=== PATIENT | female | born 1995 ===

== ENCOUNTER 2018-07-02 21:14 | Inpatient (IN) | payer OTHER ==
[2018-07-02 21:14] VITALS: BMI 24.3
[2018-07-02] MEDS: Sodium Chloride 0.9% 1,000 ML IV SCH (22:37)
[2018-07-02 23:01] LABS: BASO # 0.1 K/uL (0.0-0.2); BASO % 1.1 % (0.0-2.0); EOS # 0.5 K/uL (0.0-0.7); EOS % 5.5 % (0.0-4.0); HEMOGLOBIN 12.4 g/dL (12.0-16.0); LYMPH # 2.7 K/uL (1.0-4.3); LYMPH % 30.6 % (20.0-40.0); MEAN CELL VOLUME 80.3 fl (81.0-99.0); MEAN CORPUSCULAR HEMOGLOBIN 26.7 pg (27.0-31.0); MEAN CORPUSCULAR HGB CONC 33.2 g/dL (33.0-37.0); MEAN PLATELET VOLUME 7.6 fl (7.2-11.7); MONO # 0.4 K/uL (0.0-0.8); NEUT # 5.1 K/uL (1.8-7.0); NEUT % 57.8 % (50.0-75.0); RBC 4.65 Mil/uL (3.80-5.20); RED CELL DISTRIBUTION WIDTH 15.4 % (11.5-14.5); WHITE BLOOD COUNT 8.8 K/uL (4.8-10.8)
[2018-07-02 23:11] LABS: BLOOD UREA NITROGEN 8 mg/dl (7-17); GFR NON-AFRICAN AMERICAN > 60
--- NOTE | 2018-07-03 00:28 | ED PDOC ---
Syncope/Near Syncope/Dizziness Time Seen by Provider: 07/02/18 22:05 Chief Complaint (Nursing): Dizziness/Lightheaded Chief Complaint (Provider): Dizziness/Lightheaded History Per: Patient History/Exam Limitations: no limitations Onset/Duration Of Symptoms: Hrs Additional Complaint(s): Shelby Flores is a 22 year old female with a past medical history of asthma, presenting with headache and loss of balance onset today. Patient states that she frequently gets headaches but this one was more severe. 4 years ago, she reports that she had a spinal tap because a CT revealed excess fluid around her brain and inflamed veins in the eyes. She states that this pain is not as bad as it was 4 years ago. Patient is able to ambulate without feeling unsteady and denies any nausea or vomiting. She states that she has not been to her PMD in a few years and cannot remember the name. LNMP: 06/10/18 lasted 2 days longer than usual. Past Medical History Reviewed: Historical Data, Nursing Documentation, Vital Signs Vital Signs: Last Vital Signs Temp 98.6 F 07/02/18 21:17 Pulse 103 H 07/02/18 21:17 Resp 16 07/02/18 21:17 BP 152/98 H 07/02/18 21:17 Pulse Ox 96 07/02/18 21:17 - Medical History PMH: Asthma - Surgical History Other surgeries: spinal tap - Family History Family History: States: Unknown Family Hx - Social History Current smoker - smoking cessation education provided: No Alcohol: Social Drugs: Denies - Allergies Allergies/Adverse Reactions: Allergies Allergy/AdvReac Type Severity Reaction Status Date / Time No Known Allergies Allergy Verified 11/19/16 19:04 Review of Systems ROS Statement: Except As Marked, All Systems Reviewed And Found Negative Gastrointestinal: Negative for: Nausea, Vomiting Neurological: Positive for: Headache, Dizziness Physical Exam - Reviewed Nursing Documentation Reviewed: Yes Vital Signs Reviewed: Yes - Physical Exam Appears: Positive for: Non-toxic, No Acute Distress Head Exam: Positive for: ATRAUMATIC, NORMAL INSPECTION, NORMOCEPHALIC Skin: Positive for: Normal Color, Warm, DRY Eye Exam: Positive for: EOMI, Normal appearance, PERRL ENT: Positive for: Normal ENT Inspection Neck: Positive for: Normal, Painless ROM Cardiovascular/Chest: Positive for: Regular Rate, Rhythm. Negative for: Murmur Respiratory: Positive for: Normal Breath Sounds. Negative for: Respiratory Distress Gastrointestinal/Abdominal: Positive for: Normal Exam, Soft. Negative for: Tenderness, Distended, Guarding, Rebound Back: Positive for: Normal Inspection Extremity: Positive for: Normal ROM. Negative for: Calf Tenderness, Deformity, Swelling Neurologic/Psych: Positive for: Alert, network support manager II-XII (intact), Oriented, Other ( Romberg Test positive). Negative for: Motor/Sensory Deficits - Laboratory Results Result Diagrams: 07/02/18 22:42 07/02/18 22:42 - ECG O2 Sat by Pulse Oximetry: 96 (RA) Pulse Ox Interpretation: Normal Medical Decision Making Medical Decision Making: Time: 22:24 Impression: 22 year old female with migraine vs intracranial pathology --Due to patient having previous CT will attempt therapeutic treatment prior to another CT. --IV fluids, Reglan and Toradol --Basic Labs --consider CT brain if symptoms do not resolve 00:[address] Eller. Will start 800 acetazolomide. Opto Consult. Will admit patient under Dr. Alvarez. Scribe Attestation: Documented by Maia Ruiz, acting as a scribe for Rohini Jones MD. Provider Scribe Attestation: All medical record entries made by the Scribe were at my direction and personally dictated by me. I have reviewed the chart and agree that the record accurately reflects my personal performance of the history, physical exam, medical decision making, and the department course for this patient. I have also personally directed, reviewed, and agree with the discharge instructions and disposition. Disposition - Patient ED Disposition Is Patient to be Admitted: Yes - Disposition Disposition Time: 00:00 Condition: STABLE
[2018-07-03] MEDS: Sodium Chloride 0.9% 1,000 ML IV SCH (00:41)
[2018-07-03 05:16] VITALS: RESP 18; O2SAT 100
[2018-07-03 07:53] VITALS: PULSE 75
--- NOTE | 2018-07-03 08:57 | RAD ---
Date of service: 07/03/2018 HISTORY: possible admission COMPARISON: No prior. FINDINGS: LUNGS: The lungs are well inflated and clear. PLEURA: No significant pleural effusion identified, no pneumothorax apparent. CARDIOVASCULAR: Normal. OSSEOUS STRUCTURES: No significant abnormalities. VISUALIZED UPPER ABDOMEN: Normal. OTHER FINDINGS: None. IMPRESSION: No active pulmonary disease.
--- NOTE | 2018-07-03 09:07 | CARD ---
APPROVED REPORT Date of service: 07/03/2018 EKG Measurement Heart [id number] <Conclusion> Normal sinus rhythm Normal ECG
--- NOTE | 2018-07-03 11:38 | CT ---
Date of service: 07/03/2018 PROCEDURE: CT HEAD WITHOUT CONTRAST. HISTORY: Headache unrelieved with pain meds COMPARISON: None available. TECHNIQUE: Axial computed tomography images were obtained through the head/brain without intravenous contrast. Radiation dose: Total exam DLP = 700.44 mGy-cm. This CT exam was performed using one or more of the following dose reduction techniques: Automated exposure control, adjustment of the mA and/or kV according to patient size, and/or use of iterative reconstruction technique. FINDINGS: HEMORRHAGE: No intracranial hemorrhage. BRAIN: Deluca-white matter differentiation is preserved. There is no mass, mass effect or abnormal extra-axial fluid collection. There is no territorial infarction. The midline sagittal structures are normal. VENTRICLES: The ventricles are normal in size, shape and configuration. CALVARIUM: The skull base and calvarium are normal. PARANASAL SINUSES: Predominantly clear. MASTOID AIR CELLS: Predominantly clear. OTHER FINDINGS: None. IMPRESSION: No acute intracranial abnormality.
[2018-07-03 12:14] VITALS: BP 116/81; TEMP 98.3
--- NOTE | 2018-07-03 13:56 | CP.PCM.CON ---
History of Present Illness - History of Present Illness History of Present Illness: Miss dixon is a 22 year old woman, who has a history of headaches, and pseudotumor cerebri, and presents with headache and dizziness yesterday. Headache is 9/10, frontal and retroorbital, throbbing, and associated with visual obscurations. She denies any TVOS or diplopia. Four years ago, she had a similar headache, was found to have papilledema and spinal tap was done. Today , she is very comfortable and has decreased headache after receving diamox 800 mg last night. There is no diplopia nor is there any cranial nerve deficit. ROS: no nausea, no vomiting, no diarrhea, no headache On exam: Normal neurological examination. No papilledema. +2 dtr ul and ll bl. Toes downgoing. NO clonus. Past Patient History - Past Medical History & Family History Past Medical History?: Yes - Past Social History Smoking Status: Never Smoked - CARDIAC Hx Cardiac Disorders: No - PULMONARY Hx Respiratory Disorders: Yes Hx Asthma: Yes - NEUROLOGICAL Hx Neurological Disorder: Yes Other/Comment: hx lumbar puncture for headaches - HEENT Hx HEENT Problems: No - RENAL Hx Chronic Kidney Disease: No - ENDOCRINE/METABOLIC Hx Endocrine Disorders: No - HEMATOLOGICAL/ONCOLOGICAL Hx Blood Disorders: No - INTEGUMENTARY Hx Dermatological Problems: No - MUSCULOSKELETAL/RHEUMATOLOGICAL Hx Musculoskeletal Disorders: No Hx Falls: No - GASTROINTESTINAL Hx Gastrointestinal Disorders: No - GENITOURINARY/GYNECOLOGICAL Hx Genitourinary Disorders: No - PSYCHIATRIC Hx Psychophysiologic Disorder: No Hx Substance Use: No - SURGICAL HISTORY Hx Surgeries: No - ANESTHESIA Hx Anesthesia: No Hx Anesthesia Reactions: No Hx Malignant Hyperthermia: No Has any member of the family had a problem w/ anesthesia?: No Meds Home Medications: Home Medication List Medication Instructions Recorded Confirmed Type Ibuprofen [Motrin Tab] 600 mg PO Q6 PRN #30 tab 07/03/18 Rx acetaZOLAMIDE [Diamox Sequels] 500 mg PO BID #30 cer 07/03/18 Rx Allergies/Adverse Reactions: Allergies Allergy/AdvReac Type Severity Reaction Status Date / Time No Known Allergies Allergy Verified 11/19/16 19:04 - Medications Medications: Current Medications Acetaminophen (Tylenol 325mg Tab) 650 mg PO Q4 PRN PRN Reason: Headache Last Admin: 07/03/18 09:11 Dose: 650 mg Sodium Chloride (Sodium Chloride 0.9%) 1,000 mls @ 1,000 mls/hr IV .Q1H STACIA Stop: 07/03/18 22:26 Last Admin: 07/03/18 00:41 Dose: 1,000 mls/hr Potassium Chloride (K-Dur 20 Meq Er Tab) 20 meq PO DAILY STACIA Results - Vital Signs Recent Vital Signs: Last Vital Signs Temp 98.3 F 07/03/18 12:14 Pulse 75 07/03/18 12:14 Resp 18 07/03/18 12:14 BP 116/81 07/03/18 12:14 Pulse Ox 100 07/03/18 12:14 - Labs Result Diagrams: 07/02/18 22:42 07/02/18 22:42 Labs: Laboratory Results - last 24 hr 07/02/18 07/02/18 07/02/18 22:42 22:42 22:42 WBC 8.8 RBC 4.65 Hgb 12.4 Hct 37.4 MCV 80.3 L MCH 26.7 L MCHC 33.2 RDW 15.4 H Plt Count 298 MPV 7.6 Neut % (Auto) 57.8 Lymph % (Auto) 30.6 [place] % (Auto) 5.0 Eos % (Auto) 5.5 H Baso % (Auto) 1.1 Neut # (Auto) 5.1 Lymph # (Auto) 2.7 [place] # (Auto) 0.4 Eos # (Auto) 0.5 Baso # (Auto) 0.1 Sodium 138 Potassium 3.4 L Chloride 104 Carbon Dioxide 24 Anion Gap 13 BUN 8 Creatinine 0.5 L Est GFR ( Amer) > 60 Est GFR (Non-Af Amer) > 60 Random Glucose 124 H Calcium 9.0 Serum HCG, Qual Negative - Imaging and Cardiology CT scan - head Status: Image reviewed by me, Report reviewed by me (ct head: normal ) Assessment & Plan - Assessment and Plan (Free Text) Assessment: 22 yr old woman who has pseudotumor cerebri, and is now stable. Plan: 1. Continue on diamox 500 mg bid 2. opthalmology consult with dr. arrieta. I have spoken to him and patient will be given an appointemnt. 3. follow up with me jn one month. Thank you Dr. cabrera
--- NOTE | 2018-07-03 17:23 | CP.PCM.HP ---
History of Present Illness - History of Present Illness History of Present Illness: This is a 22 y/o female admitted for worsening of headaches mostly bitemporal and occipital and periorbital. Claims that headaches started a mor andrea 24 hrs ago and has gotten worse despite po meds hence sought ER eval. She was diagnosed to have pseudotumor cerebri and and had a spinal tap and was given meds. Last night she was started on Diammiox last night and today claims that the headaches had somehow subsided a bit. She denies any visual sx and noted to be very comfortable. She now complains of back pain and neck pain. She had an MRI of the brain 4 years ago. Present on Admission - Present on Admission Any Indicators Present on Admission: No History of DVT/PE: No History of Uncontrolled Diabetes: No Urinary Catheter: No Decubitus Ulcer Present: No Review of Systems - EENT Eyes: Blurred Vision Past Patient History - Past Medical History & Family History Past Medical History?: Yes - Past Social History Smoking Status: Never Smoked - CARDIAC Hx Cardiac Disorders: No - PULMONARY Hx Respiratory Disorders: Yes Hx Asthma: Yes - NEUROLOGICAL Hx Neurological Disorder: Yes Other/Comment: hx lumbar puncture for headaches - HEENT Hx HEENT Problems: No - RENAL Hx Chronic Kidney Disease: No - ENDOCRINE/METABOLIC Hx Endocrine Disorders: No - HEMATOLOGICAL/ONCOLOGICAL Hx Blood Disorders: No - INTEGUMENTARY Hx Dermatological Problems: No - MUSCULOSKELETAL/RHEUMATOLOGICAL Hx Musculoskeletal Disorders: No Hx Falls: No - GASTROINTESTINAL Hx Gastrointestinal Disorders: No - GENITOURINARY/GYNECOLOGICAL Hx Genitourinary Disorders: No - PSYCHIATRIC Hx Psychophysiologic Disorder: No Hx Substance Use: No - SURGICAL HISTORY Hx Surgeries: No - ANESTHESIA Hx Anesthesia: No Hx Anesthesia Reactions: No Hx Malignant Hyperthermia: No Has any member of the family had a problem w/ anesthesia?: No Meds Home Medications: Home Medication List Medication Instructions Recorded Confirmed Type Ibuprofen [Motrin Tab] 600 mg PO Q6 PRN #30 tab 07/03/18 Rx acetaZOLAMIDE [Diamox Sequels] 500 mg PO BID #30 cer 07/03/18 Rx Allergies/Adverse Reactions: Allergies Allergy/AdvReac Type Severity Reaction Status Date / Time No Known Allergies Allergy Verified 11/19/16 19:04 Physical Exam - Head Exam Head Exam: NORMAL INSPECTION - Eye Exam Eye Exam: Normal appearance - ENT Exam ENT Exam: Mucous Membranes Moist - Respiratory Exam Respiratory Exam: Clear to Auscultation Bilateral - GI/Abdominal Exam GI & Abdominal Exam: Normal Bowel Sounds - Neurological Exam Neurological exam: Alert, CN II-XII Intact, Oriented x3 - Psychiatric Exam Psychiatric exam: Anxious, Normal Mood Results - Vital Signs Recent Vital Signs: Last Vital Signs Temp 98.3 F 07/03/18 12:14 Pulse 75 07/03/18 12:14 Resp 18 07/03/18 12:14 BP 116/81 07/03/18 12:14 Pulse Ox 100 07/03/18 12:14 - Labs Result Diagrams: 07/02/18 22:42 07/02/18 22:42 Labs: Laboratory Results - last 24 hr 07/02/18 07/02/18 07/02/18 22:42 22:42 22:42 WBC 8.8 RBC 4.65 Hgb 12.4 Hct 37.4 MCV 80.3 L MCH 26.7 L MCHC 33.2 RDW 15.4 H Plt Count 298 MPV 7.6 Neut % (Auto) 57.8 Lymph % (Auto) 30.6 [place] % (Auto) 5.0 Eos % (Auto) 5.5 H Baso % (Auto) 1.1 Neut # (Auto) 5.1 Lymph # (Auto) 2.7 [place] # (Auto) 0.4 Eos # (Auto) 0.5 Baso # (Auto) 0.1 Sodium 138 Potassium 3.4 L Chloride 104 Carbon Dioxide 24 Anion Gap 13 BUN 8 Creatinine 0.5 L Est GFR ( Amer) > 60 Est GFR (Non-Af Amer) > 60 Random Glucose 124 H Calcium 9.0 Triglycerides Cholesterol LDL Cholesterol Direct HDL Cholesterol TSH 3rd Generation Serum HCG, Qual Negative 07/03/18 14:11 WBC RBC Hgb Hct MCV MCH MCHC RDW Plt Count MPV Neut % (Auto) Lymph % (Auto) [place] % (Auto) Eos % (Auto) Baso % (Auto) Neut # (Auto) Lymph # (Auto) [place] # (Auto) Eos # (Auto) Baso # (Auto) Sodium Potassium Chloride Carbon Dioxide Anion Gap BUN Creatinine Est GFR ( Amer) Est GFR (Non-Af Amer) Random Glucose Calcium Triglycerides 108 Cholesterol 217 H LDL Cholesterol Direct 95 HDL Cholesterol 77 H TSH 3rd Generation 2.52 Serum HCG, Qual Assessment & Plan (1) Pseudotumor cerebri syndrome Status: Acute - Assessment and Plan (Free Text) Plan: discussed with Dr lEler. Patient has no visual sx will be followed up as outpatient and will go home on Diamox 500 bid and Ibuprofen tid prn She was discharged in stable condition and advised about follow up.
[2018-07-04] MEDS ORDERED: Potassium Chloride 20 mEq ER Tab PO SCH (09:00)
== END 2018-07-03 15:15 | disposition home or self-care (01) | DRG 103 ==
LOC: H.ER 21:14 → H.ERHOLD 07-03 00:10 → H.TEL 07-03 03:02
PROVIDERS: ADMIT Family Medicine; ATTEND Family Medicine
DX: G93.2 Benign intracranial hypertension (principal); J45.909 Unspecified asthma, uncomplicated

== ENCOUNTER 2019-03-26 00:19 | Emergency (ER) | payer OTHER ==
[2019-03-26 00:20] VITALS: BMI 24.3
[2019-03-26 00:41] VITALS: O2SAT 98
--- NOTE | 2019-03-26 02:23 | ED PDOC ---
Lower Extremity Pain/Injury Time Seen by Provider: 03/26/19 00:43 Chief Complaint (Nursing): Headache History Per: Patient History/Exam Limitations: no limitations Onset/Duration Of Symptoms: Mins Additional Complaint(s): 23 year old with history of pseudotumor cerebri presenting with ankle/foot pain after a mechanical fall. States she twisted it and has pain to the base her R 5th toe and the outside of her ankle. States she is able to walk but with difficulty. Denie shead injury. States she was having a headache earlier from crying but is resolving. - Hip Description Of Injury: Tripped Past Medical History Reviewed: Historical Data, Nursing Documentation, Vital Signs Vital Signs: Last Vital Signs Temp 98.4 F 03/26/19 00:36 Pulse 95 H 03/26/19 00:36 Resp 18 03/26/19 00:36 BP 127/93 H 03/26/19 00:36 Pulse Ox 98 03/26/19 00:36 Primary Care Provider: Ryan Martinez - Medical History PMH: Asthma Denies: Chronic Kidney Disease - Family History Family History: States: Unknown Family Hx - Home Medications Home Medications: Ambulatory Orders Medication Instructions Recorded Ibuprofen [Motrin Tab] 600 mg PO Q6 PRN #30 tab 07/03/18 acetaZOLAMIDE [Diamox Sequels] 500 mg PO BID #30 cer 07/03/18 Ibuprofen [Motrin Tab] 600 mg PO Q6 #30 tab 03/26/19 - Allergies Allergies/Adverse Reactions: Allergies Allergy/AdvReac Type Severity Reaction Status Date / Time No Known Allergies Allergy Verified 11/19/16 19:04 Review of Systems ROS Statement: Except As Marked, All Systems Reviewed And Found Negative Musculoskeletal: Positive for: Foot Pain Physical Exam - Reviewed Nursing Documentation Reviewed: Yes Vital Signs Reviewed: Yes - Physical Exam Appears: Positive for: Well, Non-toxic, No Acute Distress Head Exam: Positive for: ATRAUMATIC, NORMAL INSPECTION, NORMOCEPHALIC Extremity: Positive for: Tenderness (Tenderness to lateral malleolus, no tenderness of medial malleolus; tenderness at base of 5th metatarsal), Swelling. Negative for: Deformity - ECG O2 Sat by Pulse Oximetry: 98 Pulse Ox Interpretation: Normal Medical Decision Making Medical Decision Makin23 year old with ankle and foot pain --Contusion v. strain v. sprain v. fracture --Will get xray, give NSAID and re-eval 330 --Xrays negative --Air cast and crutches with instructions on proper usage given by tech --Will give podiatry consult, RICE instructions --Improved and well appearing upon discharge Disposition - Clinical Impression Clinical Impression: Ankle sprain - Patient ED Disposition Is Patient to be Admitted: No Counseled Patient/Family Regarding: Studies Performed, Diagnosis, Need For Followup, Rx Given - Disposition Referrals: Podiatry Clinic [Outside] Disposition: Routine/Home Disposition Time: 03:35 Condition: GOOD Prescriptions: Ibuprofen [Motrin Tab] 600 mg PO Q6 #30 tab Instructions: Ankle Sprain, How to Use Crutches Forms: [employer] ([employer]), [facility] ED School/Work Excuse
[2019-03-26 03:47] VITALS: BP 122/90; PULSE 85; RESP 20; TEMP 97.3
--- NOTE | 2019-03-26 11:07 | RAD ---
Date of service: 03/26/2019 PROCEDURE: Right Foot Radiographs. HISTORY: slip and fall COMPARISON: March 26, 2019. Right ankle radiographs reported separately. TECHNIQUE: 3 views obtained. FINDINGS: BONES: Normal. No fracture. JOINTS: Normal. SOFT TISSUES: Normal. OTHER FINDINGS: None. IMPRESSION: Normal right foot radiographs.
--- NOTE | 2019-03-26 11:07 | RAD ---
Date of service: 03/26/2019 PROCEDURE: Right Ankle Radiographs. HISTORY: slip and fall COMPARISON: March 26, 2019. Right foot radiographs reported separately. TECHNIQUE: 3 views obtained. FINDINGS: BONES: Normal. No fracture. JOINTS: Normal. No osteoarthritis. Ankle mortise maintained. Talar dome intact SOFT TISSUES: Normal. OTHER FINDINGS: None. IMPRESSION: Normal right ankle radiographs.
== END 2019-03-26 03:45 | disposition home or self-care (01) ==
LOC: H.ER 00:19
DX: S93.401A Sprain of unspecified ligament of right ankle, initial encounter (principal); W01.0XXA Fall on same level from slipping, tripping and stumbling without subsequent striking against object, initial encounter; Y92.89 Other specified places as the place of occurrence of the external cause